=== PATIENT | male | born 1940 | race Caucasian/White ===

== ENCOUNTER 2023-09-19 00:12 | Emergency (ER) | payer MEDICARE, BC ==
[~2023-09-19] VITALS: Ht 162.6 cm; Wt 62.5 kg
[2023-09-19] MEDS ORDERED: NS 1,000 ML IV SCH (01:00)
[2023-09-19 01:24] LABS: BASO # 0.01 K/mm3 (0.02-0.10); EOS # 0.12 K/mm3 (0.04-0.40); EOS % 1.4 % (0.0-4.0); HEMOGLOBIN 14.8 g/dL (13.5-18.0); LYMPH# 1.05 K/mm3 (1.50-4.00); MEAN CELL VOLUME 93 fl (78-100); MEAN CORPUSCULAR HEMOGLOBIN 31 pg (27-31); MEAN CORPUSCULAR HGB CONC 33 g/dL (33-37); MEAN PLATELET VOLUME 9.7 fl (7.4-10.4); NEU # 6.99 K/mm3 (1.40-6.50); PLATELET COUNT 165 K/mm3 (130-400); RED BLOOD COUNT 4.84 M/mm3 (4.20-5.60); RED CELL DISTRIBUTION WIDTH 14.5 % (11.5-14.5); WHITE BLOOD COUNT 8.9 K/mm3 (4.8-10.8)
[2023-09-19 01:32] LABS: ALBUMIN 3.8 g/dL (3.4-4.8); SODIUM 140 mmol/L (136-145)
[2023-09-19 01:33] LABS: CALCIUM 9.4 mg/dL (8.3-10.5)
[2023-09-19 01:34] LABS: GLUCOSE 98 mg/dL (75-110); TOTAL PROTEIN 6.3 g/dL (6.2-8.1)
[2023-09-19 01:35] LABS: CARBON DIOXIDE 19 mmol/L (23-31)
[2023-09-19 01:36] LABS: TOTAL BILIRUBIN 1.3 mg/dL (0.2-1.2)
[2023-09-19 01:40] LABS: AST-SGOT 24 U/L (5-34)
[2023-09-19 01:41] LABS: ALT/SGPT 20 U/L (0-55)
[2023-09-19 01:48] LABS: ALCOHOL IN-HOUSE < 10 mg/dL (<10)
[2023-09-19 02:04] LABS: TROPONIN-I < 0.030 ng/mL (0.00-0.033)
[2023-09-19 03:03] VITALS: BP 146/101
[2023-09-19 03:32] LABS: PH-URINE 5.5 (5.0 - 8.0); URINE APPEARANCE CLEAR (CLEAR); URINE BILIRUBIN NEGATIVE (NEGATIVE); URINE BLOOD NEGATIVE (NEGATIVE); URINE COLOR YELLOW (YELLOW); URINE GLUCOSE NEGATIVE (NEGATIVE); URINE KETONE 2+ (NEGATIVE); URINE LEUKOCYTE ESTERASE NEGATIVE (NEGATIVE); URINE NITRATE NEGATIVE (NEGATIVE); URINE PROTEIN(semi-quant) NEGATIVE (NEGATIVE)
[2023-09-19 03:33] LABS: URINE MUCUS PRESENT (NOT PRESENT); URINE WBC 0-1 /hpf (0-3)
== END 2023-09-19 03:05 | disposition home or self-care (01) ==
LOC: ED 00:12
PROVIDERS: Family Medicine
DX: I48.91 Unspecified atrial fibrillation (principal); E86.0 Dehydration; R79.89 Other specified abnormal findings of blood chemistry
CPT/HCPCS: J7030